=== PATIENT | male | born 1960 | race Caucasian/White ===

== ENCOUNTER 2022-06-20 12:24 | Emergency (ER) | payer OTHER ==
[~2022-06-20] VITALS: Ht 177.8 cm; Wt 81.0 kg
[2022-06-20 12:26] VITALS: BP 116/81
[2022-06-20] MEDS ORDERED: TOPUD PO (20:05)
== END 2022-06-20 17:16 | disposition home or self-care (01) ==
LOC: ER 12:24
DX: Z04.89 Encounter for examination and observation for other specified reasons (principal)
CPT/HCPCS: 99283

== ENCOUNTER 2022-06-20 18:59 | Emergency (ER) | payer OTHER ==
[~2022-06-20] VITALS: Ht 175.3 cm; Wt 75.0 kg
[2022-06-20 19:07] VITALS: BP 127/77
[2022-06-20] MEDS ORDERED: ACETAMINOPHEN 325MG TABLET PO ONE (19:30)
[2022-06-20] MEDS ORDERED: TOPUD PO (20:05)
== END 2022-06-20 20:36 | disposition home or self-care (01) ==
LOC: ER 18:59
DX: S61.412A Laceration without foreign body of left hand, initial encounter (principal); S61.411A Laceration without foreign body of right hand, initial encounter; W22.8XXA Striking against or struck by other objects, initial encounter; Y93.89 Activity, other specified; Y92.018 Other place in single-family (private) house as the place of occurrence of the external cause
CPT/HCPCS: 73120; 99283

== ENCOUNTER 2022-06-20 20:53 | Emergency (ER) | payer OTHER ==
[~2022-06-20] VITALS: Ht 182.9 cm; Wt 78.0 kg
[~2022-06-20 20:53] MED LIST: TOPUD PO
[2022-06-20 21:01] VITALS: BP 119/76
== END 2022-06-20 22:35 | disposition home or self-care (01) ==
LOC: ER 20:53
DX: F32.A Depression, unspecified (principal); Z59.00 Homelessness unspecified
CPT/HCPCS: 99281

== ENCOUNTER 2023-12-10 00:26 | Emergency (ER) | payer OTHER ==
[~2023-12-10] VITALS: Ht 180.3 cm; Wt 77.0 kg
[2023-12-10 00:31] VITALS: BP 138/77; PULSE 79; RESP 16; O2SAT 97
[2023-12-10 00:45] VITALS: TEMP 99.1
[2023-12-10] MEDS: ONDANSETRON 4MG ODT PO ONE (00:45)
[2023-12-10] MEDS: TETANUS, DIPHTHERIA, PERTUSSIS VAC/PF 0.5ML (>10YR OLD) IM ONE (00:45)
[2023-12-10] MEDS: ACETAMINOPHEN 325MG TABLET PO ONE (00:45)
== END 2023-12-10 04:00 | disposition home or self-care (01) ==
LOC: ER 00:31
DX: S01.01XA Laceration without foreign body of scalp, initial encounter (principal); G89.11 Acute pain due to trauma; Y04.0XXA Assault by unarmed brawl or fight, initial encounter; Y93.89 Activity, other specified; Y92.89 Other specified places as the place of occurrence of the external cause; Y99.8 Other external cause status
CPT/HCPCS: 99284; 70450; 90715; 12013; 90471; Q0162